=== PATIENT | male | born 1950 ===

== ENCOUNTER 2018-02-17 13:09 | Inpatient (IN) | payer MEDICARE, OTHER ==
[2018-02-17 13:09] VITALS: BMI 28.3
[2018-02-17 14:09] LABS: BASO % 0.6 % (0.0-2.0); EOS # 0.1 K/uL (0.0-0.7); EOS % 1.2 % (0.0-4.0); HEMOGLOBIN 16.3 g/dL (12.0-18.0); LYMPH # 1.1 K/uL (1.0-4.3); LYMPH % 17.8 % (20.0-40.0); MEAN CORPUSCULAR HEMOGLOBIN 28.2 pg (27.0-31.0); MEAN CORPUSCULAR HGB CONC 33.6 g/dL (33.0-37.0); MEAN PLATELET VOLUME 7.1 fL (7.2-11.7); MONO # 0.5 K/uL (0.0-0.8); MONO % 8.8 % (0.0-10.0); NEUT # 4.4 K/uL (1.8-7.0); NEUT % 71.6 % (50.0-75.0); NRBC % 0.1 % (0.0-2.0); RBC 5.78 Mil/uL (4.40-5.90); RED CELL DISTRIBUTION WIDTH 15.3 % (11.5-14.5); WHITE BLOOD COUNT 6.1 K/uL (4.8-10.8)
--- NOTE | 2018-02-17 14:19 | RAD ---
Date of service: 02/17/2018 PROCEDURE: CHEST RADIOGRAPH, 1 VIEW HISTORY: chest pain COMPARISON: None available. FINDINGS: LUNGS: Clear. PLEURA: No pneumothorax or pleural fluid seen. CARDIOVASCULAR: Cardiomediastinal silhouette prominent. OSSEOUS STRUCTURES: Degenerative changes. VISUALIZED UPPER ABDOMEN: Normal. OTHER FINDINGS: None. IMPRESSION: No active disease.
[2018-02-17 14:20] LABS: ALB/GLOB RATIO 1.3 (1.0-2.1); ALBUMIN 4.1 g/dL (3.5-5.0); ALT/SGPT 27 U/L (21-72); AST/SGOT 17 U/L (17-59); BLOOD UREA NITROGEN 17 mg/dL (9-20); CALCIUM 9.6 mg/dl (8.6-10.4); GFR AFRICAN-AMERICAN > 60; GFR NON-AFRICAN AMERICAN > 60
[2018-02-17 14:21] LABS: INR 1.5; PROTHROMBIN TIME 15.9 SECONDS (9.7-12.2)
--- NOTE | 2018-02-17 14:25 | C.PDOC ---
History Of Present Illness 67 year old male presents to the ED c/o chest pain for 2 months. Patient states he was sent in by Dr. Luna for evaluation. Patient reports he is currently taking warfarin. Patient denies SOB, nausea, vomiting, dizziness, weakness, numbness. Time Seen by Provider: 02/17/18 13:49 Chief Complaint (Nursing): Chest Pain History Per: Patient, Family History/Exam Limitations: no limitations Onset/Duration Of Symptoms: Other (2 months) Current Symptoms Are (Timing): Still Present Quality: "Pain" Modifying Factors: None Alleviating Factors: None Recent travel outside of the [place]: No Additional History Per: Patient Past Medical History Reviewed: Historical Data, Nursing Documentation, Vital Signs Vital Signs: Last Vital Signs Temp 98 F 02/17/18 13:18 Pulse 70 02/17/18 13:18 Resp 20 02/17/18 13:18 BP 137/76 02/17/18 13:18 Pulse Ox 95 02/17/18 15:02 - Medical History PMH: CAD, HTN Denies: Chronic Kidney Disease Surgical History: No Surg Hx Family History: States: Unknown Family Hx - Social History Hx Alcohol Use: No Hx Substance Use: No Review Of Systems Constitutional: Negative for: Fever, Chills, Weakness Cardiovascular: Positive for: Chest Pain. Negative for: Light Headedness Respiratory: Negative for: Shortness of Breath Gastrointestinal: Negative for: Nausea, Vomiting Musculoskeletal: Negative for: Arm Pain Neurological: Negative for: Weakness, Numbness Physical Exam - Physical Exam Appears: Non-toxic, No Acute Distress Skin: Normal Color, Warm, Dry Head: Atraumatic, Normacephalic Eye(s): bilateral: Normal Inspection Oral Mucosa: Moist Neck: Normal ROM, Supple Chest: Symmetrical Cardiovascular: Rhythm Regular, Murmur (3+ systolic injection murmur) Respiratory: Normal Breath Sounds Gastrointestinal/Abdominal: Soft, No Tenderness, No Guarding, No Rebound Extremity: Normal ROM, No Tenderness, Capillary Refill (<2 seconds), No Swelling Neurological/Psych: Oriented x3, Normal Speech Gait: Steady ED Course And Treatment - Laboratory Results Result Diagrams: 02/17/18 14:04 02/17/18 14:04 ECG: Interpreted By Me, Viewed By Me ECG Rhythm: Sinus Rhythm Interpretation Of ECG: Normal intervals, normal axis, no ST/T wave abnormalities Rate From EC (BPM) O2 Sat by Pulse Oximetry: 95 (on RA) Pulse Ox Interpretation: Normal - Radiology CXR: Read By Radiologist CXR Interpretation: Yes: No Acute Disease. No: Infiltrates Medical Decision Making Medical Decision Making: Impression: Chest pain Plan * EKG * Labs * * case discussed with Dr. Siddiqi and will admit to tele observation. * Dr. Luna on cardiology consult. Disposition Discussed With .: Daniel Siddiqi Doctor Will See Patient In The: Hospital Counseled Patient/Family Regarding: Studies Performed, Diagnosis - Disposition Disposition: HOSPITALIZED Disposition Time: 15:01 Condition: FAIR - Clinical Impression Clinical Impression: Chest pain - Scribe Statement The provider has reviewed the documentation as recorded by the Scribe Taurus Guzmán All medical record entries made by the Bernieibe were at my direction and personally dictated by me. I have reviewed the chart and agree that the record accurately reflects my personal performance of the history, physical exam, medical decision making, and the department course for this patient. I have also personally directed, reviewed, and agree with the discharge instructions and disposition.
[2018-02-17 22:45] LABS: CK-MB 0.79 ng/mL (0.0-3.38)
[2018-02-18 07:57] LABS: INR 1.4; PROTHROMBIN TIME 15.6 SECONDS (9.7-12.2)
[2018-02-18] MEDS ORDERED: Verapamil 2 ML ONE (08:14)
[2018-02-18] MEDS ORDERED: Midazolam 2 MG/2 ML VIAL ONE (08:14)
[2018-02-18] MEDS ORDERED: Nitroglycerin 50mg in D5W 50 MG/250 ML BOTTLE IV ONE (09:01)
[2018-02-18] MEDS ORDERED: DOPamine 400mg/250ml D5W 400 MG/250 ML BAG IV ONE (09:12)
[2018-02-18] MEDS ORDERED: DiphenhydrAMINE 50 mg/ml Inj ONE (09:13)
[2018-02-18] MEDS ORDERED: Heparin25000 units/250ml 1/2NS 25,000 UNITS/250 ML BAG IV ONE (09:27)
[2018-02-18] MEDS ORDERED: Enoxaparin 40 mg Syringe SC SCH (10:00)
[2018-02-18] MEDS ORDERED: Pneumococcal 23-Valent Vaccine IM ONE (10:00)
[2018-02-18] MEDS ORDERED: Metoprolol Succinate 25 mg XL Tab PO SCH (10:00)
[2018-02-18] MEDS ORDERED: Heparin25000 units/250ml 1/2NS 25,000 UNITS/250 ML BAG IV PRN (10:20)
--- NOTE | 2018-02-18 11:05 | CP.PCM.CON ---
<MemoLoyda - Last Filed: 02/18/18 12:07> History of Present Illness - History of Present Illness History of Present Illness: 67 yo M w/ PMHX of non healing LLE ulcer(due to vascular dz requiring coumadin?) , presented to ED yesterday w/ complaints of chest pain. Admitted to ICU s/p cardiac cath w/ balloon pump w/ Dr. Luna. Pt became bradycardic and hypotensive intra-operatively with ST changes noted on EKG; ischemic changes like 2/2 poor perfusion during event. 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 Pt to be transferred [place] [facility] [place]. Review of Systems - Constitutional Constitutional: absent: Fever, Headache - Cardiovascular Cardiovascular: absent: Chest Pain, Dyspnea, Orthopnea - Respiratory Respiratory: absent: Cough, Dyspnea - Gastrointestinal Gastrointestinal: absent: Abdominal Pain - Genitourinary Genitourinary: absent: Difficulty Urinating - Integumentary Integumentary: As Per HPI, Wounds (LLE) Past Patient History - Past Medical History & Family History Past Medical History?: Yes - Past Social History Smoking Status: Never Smoked - CARDIAC Hx Hypertension: Yes - PULMONARY Hx Respiratory Disorders: No - NEUROLOGICAL Hx Neurological Disorder: No - HEENT Hx HEENT Problems: No - RENAL Hx Chronic Kidney Disease: No - ENDOCRINE/METABOLIC Hx Endocrine Disorders: No - HEMATOLOGICAL/ONCOLOGICAL Hx Blood Disorders: No - INTEGUMENTARY Hx Dermatological Problems: Yes Other/Comment: darkly pigmented dry skin on bilateral lower inner legs - MUSCULOSKELETAL/RHEUMATOLOGICAL Hx Musculoskeletal Disorders: No Hx Falls: No - GASTROINTESTINAL Hx Gastrointestinal Disorders: No - GENITOURINARY/GYNECOLOGICAL Hx Genitourinary Disorders: No - PSYCHIATRIC Hx Substance Use: No - SURGICAL HISTORY Hx Surgeries: No - ANESTHESIA Hx Anesthesia: No Hx Anesthesia Reactions: No Hx Malignant Hyperthermia: No Meds Allergies/Adverse Reactions: Allergies Allergy/AdvReac Type Severity Reaction Status Date / Time No Known Allergies Allergy Verified 02/17/18 13:23 - Medications Medications: Current Medications Aspirin (Aspirin Chewable) 81 mg PO DAILY HAILEY Famotidine (Pepcid) 20 mg PO BID HAILEY Heparin Sodium/Sodium Chloride (Heparin 16299 Units/250ml 1/2 Normal Saline) 25 ,000 units in 250 mls @ 10.342 mls/hr IV .Q24H PRN; Protocol; 12 UNITS/KG/HR PRN Reason: PROTOCOL Metoprolol Tartrate (Lopressor) 12.5 mg PO BID HAILEY Rosuvastatin Calcium (Crestor) 40 mg PO HS HAILEY Physical Exam - Constitutional Appears: Well, No Acute Distress - Head Exam Head Exam: ATRAUMATIC, NORMAL INSPECTION, NORMOCEPHALIC - Eye Exam Eye Exam: EOMI - Respiratory Exam Respiratory Exam: Clear to Auscultation Bilateral - Cardiovascular Exam Cardiovascular Exam: REGULAR RHYTHM. absent: Bradycardia - GI/Abdominal Exam GI & Abdominal Exam: Normal Bowel Sounds, Soft - Expanded Lower Extremities Exam Left Lower Leg Exam: abrasion (LLE non healing ulcer, leg wrapped by wound care) Neuro vacular tendon exam: absent: pallor, pulse deficit Results - Vital Signs Recent Vital Signs: Last Vital Signs Temp 98.2 F 02/18/18 07:15 Pulse 64 02/18/18 07:15 Resp 20 02/18/18 07:15 BP 125/81 02/18/18 07:15 Pulse Ox 96 02/18/18 07:15 - Labs Result Diagrams: 02/17/18 14:04 02/17/18 14:04 Labs: Laboratory Results - last 24 hr 02/17/18 02/17/18 02/17/18 14:04 14:04 14:04 WBC 6.1 RBC 5.78 Hgb 16.3 Hct 48.5 MCV 84.0 MCH 28.2 MCHC 33.6 RDW 15.3 H Plt Count 173 MPV 7.1 L Neut % (Auto) 71.6 Lymph % (Auto) 17.8 L Corson % (Auto) 8.8 Eos % (Auto) 1.2 Baso % (Auto) 0.6 Neut # (Auto) 4.4 Lymph # (Auto) 1.1 Corson # (Auto) 0.5 Eos # (Auto) 0.1 Baso # (Auto) 0.0 PT 15.9 H INR 1.5 APTT 32 Sodium 141 Potassium 4.1 Chloride 102 Carbon Dioxide 29 Anion Gap 14 BUN 17 Creatinine 1.1 Est GFR ( Amer) > 60 Est GFR (Non-Af Amer) > 60 Random Glucose 104 Calcium 9.6 Total Bilirubin 0.6 AST 17 D ALT 27 Alkaline Phosphatase 46 Total Creatine Kinase CK-MB (Mass) Troponin I < 0.0120 Total Protein 7.2 Albumin 4.1 Globulin 3.2 Albumin/Globulin Ratio 1.3 02/17/18 02/18/18 02/18/18 22:15 07:47 07:47 WBC RBC Hgb Hct MCV MCH MCHC RDW Plt Count MPV Neut % (Auto) Lymph % (Auto) Corson % (Auto) Eos % (Auto) Baso % (Auto) Neut # (Auto) Lymph # (Auto) Corson # (Auto) Eos # (Auto) Baso # (Auto) PT 15.6 H INR 1.4 APTT Sodium Potassium Chloride Carbon Dioxide Anion Gap BUN Creatinine Est GFR ( Amer) Est GFR (Non-Af Amer) Random Glucose Calcium Total Bilirubin AST ALT Alkaline Phosphatase Total Creatine Kinase 65 64 CK-MB (Mass) 0.79 0.80 Troponin I < 0.0120 < 0.0120 Total Protein Albumin Globulin Albumin/Globulin Ratio Assessment & Plan - Assessment and Plan (Free Text) Assessment: 67 yo M s/p cardiac cath complicated by hypotensive/bradycardic event inta-op resulting in ischemia 2/2 poor perfusion. Neuro: CV: r/o WV -CE q8 x3 -heparin drip -metoprolol 12.5 BID -aspirin 325 -echo -am EKG CAD -aspirin 81 -crestor 40 -f/u a1c Pulm: NC @2L GI: -Heart Healthy diet Ppx -pepcid 20 BID -SCD contraindicated s/p cath/LLE ulcer Dispo: -awaiting [place] [facility] [place] Case discussed w/ Dr Arian Hampton PGY1 <Puneet Roberson - Last Filed: 02/18/18 18:47> Meds - Medications Medications: Current Medications Aspirin (Aspirin Chewable) 81 mg PO DAILY HAILEY Famotidine (Pepcid) 20 mg PO BID HAILEY Last Admin: 02/18/18 11:10 Dose: 20 mg Heparin Sodium/Sodium Chloride (Heparin 84776 Units/250ml 1/2 Normal Saline) 25 ,000 units in 250 mls @ 10.342 mls/hr IV .Q24H PRN; Protocol; 12 UNITS/KG/HR PRN Reason: PROTOCOL Last Admin: 02/18/18 10:30 Dose: 12 units/kg/hr, 10.342 mls/hr Metoprolol Tartrate (Lopressor) 12.5 mg PO BID HAILEY Rosuvastatin Calcium (Crestor) 40 mg PO HS HAILEY Results - Vital Signs Recent Vital Signs: Last Vital Signs Temp 98.2 F 02/18/18 07:15 Pulse 67 02/18/18 16:00 Resp 17 02/18/18 16:00 BP 130/58 L 02/18/18 15:55 Pulse Ox 97 02/18/18 16:00 - Labs Result Diagrams: 02/17/18 14:04 02/17/18 14:04 Labs: Laboratory Results - last 24 hr 02/17/18 02/18/18 02/18/18 22:15 07:47 07:47 PT 15.6 H INR 1.4 Total Creatine Kinase 65 64 CK-MB (Mass) 0.79 0.80 Troponin I < 0.0120 < 0.0120 02/18/18 11:07 PT INR Total Creatine Kinase CK-MB (Mass) Troponin I 0.0430 Attending/Attestation - Attestation I have personally seen and examined this patient.: Yes I have fully participated in the care of the patient.: Yes I have reviewed all pertinent clinical information: Yes Notes (Text): 02/18/18 18:46 patient seen and examined Status post cardiac cath this severe coronary artery disease Status post intra-aortic balloon pump For transfer to [facility]
--- NOTE | 2018-02-18 17:23 | CARD ---
APPROVED REPORT Date of service: 02/18/2018 EXAM: Two-dimensional and M-mode echocardiogram with Doppler and color Doppler. Other Information Quality : Technically LimitedRhythm : NSR INDICATION Chest Pain Congestive Heart Failure 2D DIMENSIONS LVOT Diameter1.5 (1.8-2.4cm) M-Mode DIMENSIONS RVDd1.56 (2.1-3.2cm)Left Atrium (MM)3.96 (2.5-4.0cm) IVSd1.18 (0.7-1.1cm)Aortic Root3.12 (2.2-3.7cm) LVDd4.72 (4.0-5.6cm)Aortic Cusp Exc.1.11 (1.5-2.0cm) PWd1.18 (0.7-1.1cm)FS (%) 21 % LVDs3.71 (2.0-3.8cm)LVEF (%)45 (>50%) Aortic Valve AoV Peak Vozbhgsu682.8cm/Constantino Peak GR.12mmHgLVOT Peak Xqamidff35.8cm/s Mitral Valve MV E Hxwngeqg42.9cm/sMV A Ovxqljhd26.3cm/sE/A ratio0.9 TDI E/Lateral E'0.0E/Medial E'0.0 Tricuspid Valve TR Peak Qibwhaht148cp/sTR Peak Gr.[id number] LEFT VENTRICLE The Left Ventricle is mildly dilated. There is mild concentric left ventricular hypertrophy. The systolic function is mildly impaired. The Ejection Fraction is - 45 - 50%. No regional wall motion abnormalities noted. The left ventricular diastolic function is normal. RIGHT VENTRICLE The right ventricle is normal size. The right ventricular systolic function is normal. ATRIA The left atrium is mildly dilated. The right atrium size is normal. AORTIC VALVE The aortic valve is mildly to moderately sclerotic with midly decreased systolic excursion There is mild aortic regurgitation. There is mild valvular aortic stenosis. MITRAL VALVE The mitral valve is normal in structure. There is no mitral valve regurgitation noted. TRICUSPID VALVE The tricuspid valve is normal in structure. There is trace tricuspid regurgitation. PULMONIC VALVE The pulmonic valve is not well visualized. GREAT VESSELS The aortic root displays mild to moderate sclerocalcific changes. The IVC is normal in size and collapses >50% with inspiration. PERICARDIAL EFFUSION There is no pericardial effusion. <Conclusion> The Left Ventricle is mildly dilated. There is mild concentric left ventricular hypertrophy. The left ventricular systolic function is mildly impaired.The Ejection Fraction is - 45 - 50%. No regional wall motion abnormalities noted. The right ventricular systolic function is normal. There is mild calcific valvular aortic stenosis.There is mild aortic regurgitation. There is no pericardial effusion.
[2018-02-18] MEDS ORDERED: Enoxaparin 80 mg Syringe SC SCH (18:00)
[2018-02-18] MEDS ORDERED: Metoprolol Succinate 12.5 mg XL Tab PO SCH (18:00)
[2018-02-18 18:41] VITALS: TEMP 98.8
[2018-02-18 19:26] VITALS: BP 141/57; PULSE 91; RESP 17; O2SAT 96
--- NOTE | 2018-02-18 21:03 | CARD ---
APPROVED REPORT Date of service: 02/17/2018 EKG Measurement Heart [id number] <Conclusion> Normal sinus rhythm Normal ECG
--- NOTE | 2018-02-23 21:16 | CARDCATH ---
PROCEDURE DATE: 02/18/2018 PROCEDURES: 1. Left heart catheterization. 2. Coronary angiogram. 3. Intraaortic balloon pump insertion. REFERRING PHYSICIAN: Daniel Siddiqi MD. PERFORMING PHYSICIAN: Wes Luna MD CLINICAL INDICATIONS: 1. Unstable angina. 2. Hypertension. 3. Coronary artery disease. 4. Diabetes. 5. Hyperlipidemia. DESCRIPTION OF PROCEDURE: After informed consent, the patient was prepped and draped in the usual sterile fashion. Lidocaine 2% was given in the right groin for local anesthesia. Using micropuncture technique, a 6-Gabonese sheath was introduced into right common femoral artery. A JL4 6-Gabonese diagnostic catheter engaged into left main coronary artery. Contrast injected and left coronary angiogram was done. JR4 6-Gabonese diagnostic catheter crossed into the left ventricle across the aortic valve. The LV end diastolic pressure was measured. Contrast injected and LV angiogram was done. Then, the catheter was pulled back, engaged into right coronary artery. Contrast injected and right coronary angiogram was done. The patient tolerated the procedure well. However, due to severe coronary artery disease, intraaortic balloon pump inserted from the right groin without complications. Originally, the patient was attempted to undergo radial catheterization. However, due to radial artery spasm, the site was switched to right groin. The radiologic supervision and interpretation of the imaging was done. FINDINGS: 1. Left main coronary artery has a 60% to 70% stenosis. 2. Proximal LAD has a 99% stenosis. Mid LAD is 100% occluded. The patient has patent collaterals from the right and left coronary system. 3. Proximal left circumflex is patent. OM1 has 90% stenosis. OM2 has 99% stenosis. 4. Right coronary artery is dominant. Proximal right coronary artery has 50% to 60% stenosis. 5. LV ejection fraction is 60%. There is a mild gradient across the aortic valve, suggestive of mild aortic stenosis. There are no wall motion abnormalities noted. IMPRESSION: 1. Severe coronary artery disease as described above. 2. Intraaortic balloon pump inserted for cardiac support. The patient will be transferred to cardiac center for coronary artery bypass surgery. Wes Luna MD [facility] # [id number]
== END 2018-02-18 19:00 | disposition short-term general hospital (02) | DRG 271 ==
LOC: C.ER 13:09 → C.9E 14:59 → C.5S 16:50 → C.9I 02-18 10:17 → OBSVTOIN 02-18 10:30
PROVIDERS: ADMIT Internal Medicine Pulmonary Disease; ATTEND Internal Medicine Pulmonary Disease
PROC: 5A02210 Assistance with Cardiac Output using Balloon Pump, Continuous (ICD-10-PCS; 2018-02-18)
PROC: B2151ZZ Fluoroscopy of Left Heart using Low Osmolar Contrast (ICD-10-PCS; 2018-02-18)
PROC: B2111ZZ Fluoroscopy of Multiple Coronary Arteries using Low Osmolar Contrast (ICD-10-PCS; 2018-02-18)
PROC: 4A023N7 Measurement of Cardiac Sampling and Pressure, Left Heart, Percutaneous Approach (ICD-10-PCS; principal; 2018-02-18 09:00)
DX: I25.110 Atherosclerotic heart disease of native coronary artery with unstable angina pectoris (principal); I25.82 Chronic total occlusion of coronary artery; I97.88 Other intraoperative complications of the circulatory system, not elsewhere classified; R00.1 Bradycardia, unspecified; I95.89 Other hypotension; I10 Essential (primary) hypertension